=== PATIENT | male | born 1970 | race Two or more races ===

== ENCOUNTER 2024-07-02 08:33 | Emergency (ER) | payer OTHER ==
[~2024-07-02] VITALS: Ht 177.8 cm; Wt 86.2 kg
[2024-07-02] MEDS ORDERED: DEXAMETHASONE SODIUM PHOSPHATE 4 MG/ML VIAL ONE (09:10)
[2024-07-02] MEDS ORDERED: GUAIFEN/DEXTROMETHORPHAN/PE 10 ML BLIST.PACK PO ONE ×2 (09:10→09:15)
[2024-07-02] MEDS ORDERED: CETIRIZINE HCL 5MG/5ML BLIST.PACK PO ONE (09:10)
[2024-07-02] MEDS ORDERED: DEXAMETHASONE SODIUM PHOSPHATE 4 MG/ML VIAL IM ONE (09:15)
[2024-07-02] MEDS ORDERED: CETIRIZINE HCL 5 MG/5 ML ML PO ONE (09:15)
[2024-07-02 09:29] LABS: HEMATOCRIT 38.3 % (39.0-48.0); HEMOGLOBIN 13.7 g/dL (13-16.00); MEAN CELL VOLUME 87.1 fL (80.0-100.00); MEAN CORPUSCULAR HEMOGLOBIN 31.1 pg (27.00-32.0); MEAN CORPUSCULAR HGB CONC 35.7 g/dl (32.0-36.0); PLATELET COUNT 252 K/uL (150-450); RED BLOOD COUNT 4.39 M/uL (4.00-6.00); RED CELL DISTRIBUTION WIDTH 12.7 % (11.5-14.5)
[2024-07-02] MEDS ORDERED: ZITHROMAX500 MG PO (10:22)
[2024-07-02] MEDS ORDERED: TUSNEL DM LIQU473 ML PO (10:22)
[2024-07-02] MEDS ORDERED: SINGULAIR10 MG PO (10:22)
== END 2024-07-02 10:28 | disposition home or self-care (01) ==
LOC: ER 08:35
PROVIDERS: General Practice
DX: J06.9 Acute upper respiratory infection, unspecified (principal); Z20.822 Contact with and (suspected) exposure to COVID-19